=== PATIENT | male | born 1985 | race Caucasian/White ===

== ENCOUNTER 2020-03-07 17:07 | Emergency (ER) | payer SELFPAY ==
[~2020-03-07] VITALS: Ht 160 cm; Wt 79.9 kg
[2020-03-07 18:48] VITALS: BP 133/88
== END 2020-03-07 18:48 | disposition home or self-care (01) ==
LOC: M ED 17:07
DX: R09.82 Postnasal drip (principal); R05 Cough; R07.0 Pain in throat; F12.10 Cannabis abuse, uncomplicated